=== PATIENT | female | born 1950 | race Caucasian/White ===

== ENCOUNTER → 2019-12-02 13:09 | Outpatient (BNVA) | payer MEDICARE, OTHER, SELFPAY | PROVIDERS: Family Provider Nurse Practitioner Family; PCP Nurse Practitioner Family; Visit Provider Nurse Practitioner Family | DX: R30.0 Dysuria (principal) | CPT/HCPCS: 80053; 81003; 87077; 87086; 87186 ==

== ENCOUNTER → 2020-10-16 14:52 | Outpatient (BNVA) | payer MEDICARE, OTHER, SELFPAY | PROVIDERS: Family Provider Nurse Practitioner Family; PCP Nurse Practitioner Family; Visit Provider Family Medicine | DX: F41.9 Anxiety disorder, unspecified (principal); G47.09 Other insomnia; E55.9 Vitamin D deficiency, unspecified; F32.9 Major depressive disorder, single episode, unspecified; L40.9 Psoriasis, unspecified | CPT/HCPCS: 80053; 80061; 82306; 84443 ==

== ENCOUNTER → 2022-02-24 12:03 | Outpatient (BNVA) | payer MEDICARE, OTHER, SELFPAY | PROVIDERS: Family Provider Nurse Practitioner Family; PCP Nurse Practitioner Family; Visit Provider Nurse Practitioner Family | DX: G47.09 Other insomnia (principal); L40.9 Psoriasis, unspecified; M25.511 Pain in right shoulder; E55.9 Vitamin D deficiency, unspecified; F32.9 Major depressive disorder, single episode, unspecified; F41.9 Anxiety disorder, unspecified; F32.1 Major depressive disorder, single episode, moderate; Z78.0 Asymptomatic menopausal state | CPT/HCPCS: 80053; 80061; 82306; 84443 ==

== ENCOUNTER → 2022-02-27 11:29 | Outpatient (BNVA) | payer MEDICARE, OTHER, SELFPAY | PROVIDERS: Family Provider Nurse Practitioner Family; PCP Nurse Practitioner Family; Visit Provider Nurse Practitioner Family | DX: R30.0 Dysuria (principal); N39.0 Urinary tract infection, site not specified | CPT/HCPCS: 81003 ==

== ENCOUNTER → 2022-04-17 13:16 | Outpatient (BNVA) | payer MEDICARE, OTHER, SELFPAY | PROVIDERS: Family Provider Nurse Practitioner Family; PCP Nurse Practitioner Family; Visit Provider Nurse Practitioner Family | DX: R10.9 Unspecified abdominal pain (principal); R31.9 Hematuria, unspecified | CPT/HCPCS: 87086 ==

== ENCOUNTER → 2022-04-25 08:44 | Outpatient (BNVA) | payer MEDICARE, OTHER, SELFPAY | PROVIDERS: Family Provider Nurse Practitioner Family; PCP Nurse Practitioner Family; Visit Provider Nurse Practitioner Family | DX: N39.0 Urinary tract infection, site not specified (principal) | CPT/HCPCS: 81000 ==

== ENCOUNTER → 2022-05-06 11:09 | Outpatient (BNVA) | payer MEDICARE, OTHER, SELFPAY | PROVIDERS: Family Provider Nurse Practitioner Family; PCP Nurse Practitioner Family; Visit Provider Nurse Practitioner Family | DX: R10.9 Unspecified abdominal pain (principal); N39.0 Urinary tract infection, site not specified; Z11.59 Encounter for screening for other viral diseases; Z72.89 Other problems related to lifestyle; R31.9 Hematuria, unspecified; M25.50 Pain in unspecified joint; M25.551 Pain in right hip; R07.89 Other chest pain | CPT/HCPCS: 71046; 73502; 81003; 82565; 85651; 86038; 86140; 86200; 86431; 86705; 86706; 86709; 86803; 87077; 87086; 87184; 87340 ==

== ENCOUNTER → 2022-05-13 10:37 | Outpatient (BNVA) | payer MEDICARE, OTHER, SELFPAY | PROVIDERS: Family Provider Nurse Practitioner Family; PCP Nurse Practitioner Family; Visit Provider Nurse Practitioner Family | DX: R60.9 Edema, unspecified (principal); Z01.810 Encounter for preprocedural cardiovascular examination | CPT/HCPCS: 80053; 83880 ==

== ENCOUNTER 2022-05-14 09:40 | Emergency (ER) | payer MEDICARE, OTHER, SELFPAY ==
[2022-05-14 09:49] VITALS: BP 126/66; PULSE 96; RESP 18; TEMP 36.8; O2SAT 93; BMI 22.8
--- NOTE | 2022-05-14 10:13 | XRR_ITS ---
PROCEDURE INFORMATION: Exam: XR Chest Exam date and time: 05/14/2022 10:26 AM Age: 71 years old Clinical indication: Other: Kidney pain; Additional info: Swelling TECHNIQUE: Imaging protocol: Radiologic exam of the chest. Views: 1 view. COMPARISON: CR XR chest 2V* [id number] 05/06/2022 11:14 AM FINDINGS: Lungs: Low lung volumes seen.. There is a diffuse parenchymal density in the right perihilar region. This finding is 67 mm x 31 mm in size. No calcifications seen. There appear to be sharp borders in parts of this lesion. Edges would not be expected with pneumonia . The potential for a mass should be ruled out. Chest CT examination is recommended with intravenous contrast. Pleural spaces: Unremarkable. No pleural effusion. No pneumothorax. Heart/Mediastinum: There is prominence in the right hilar soft tissues. These findings may represent enlarged lymph node or mass lesions. No cardiomegaly. Bones/joints: Unremarkable. XR/XR chest 1V portable [id number] IMPRESSION: 1. Right perihilar parenchymal density rule out mass CT chest recommended 2. Prominent soft tissues in the right hilum rule out the lymph nodes or mass. 3. Otherwise negative chest examination are are a
--- NOTE | 2022-05-14 10:15 | W.ED.GENADLT ---
Documented by User: TRENA Sellers 05/14/22 13:00 HPI - General Adult General: Chief complaint: Urogenital-Female Stated complaint: kidney pain Time Seen by Provider: 05/14/22 09:42 Source: patient Mode of arrival: ambulatory Limitations: no limitations History of Present Illness: Patient is a 71-year-old female who presents to ED today with a complaint of right lower chest/abdominal/flank pains. Patient states she has had these pains for approximately 1.5 months. She states she has been diagnosed with UTIs and kidney infections and treated with antibiotics but this has not seemed to alleviate her discomfort. She states over the past 2 to 3 days she began noticing lower extremity pitting edema that she states is new. Patient does not complain of shortness of breath, difficulty breathing, or chest pain. She has no history of CHF. She does report her urine has been darker than normal but does not complain of dysuria, frequency, urgency. She has not been running fevers. No history of kidney or ureterolithiasis. Patient has not had a cough or other URI-like symptoms. Onset (ago): day(s) Pain Consistency: constant Relieving factors: none Exacerbating factors: none Associated symptoms: Reports chest pain (R lower chest wall pain); Deny dyspnea, headache(s), malaise, nausea, rash, palpitations, syncope or vomiting Review of Systems Const: Denies: fever(s), chills, body aches, fatigue or malaise Card: Reports: chest pain (R lower chest wall pain), edema and swelling of feet/ankles; Denies: palpitations, irregular heart rhythm, lightheadedness, syncope, pre-syncope, dyspnea on exertion, orthopnea, leg pain with exertion or acrocyanosis Resp: Reports: pain on inspiration; Denies: dyspnea, productive cough, non-productive cough, wheezing, hemoptysis or chest congestion GI: Denies: abdominal pain, nausea, vomiting or diarrhea : Reports: other (reports darker than normal urine); Denies: flank pain, difficulty voiding, dysuria, urinary frequency, urinary urgency or urinary hesitancy Musc: Denies: neck pain, extremity pain or joint pain Skin/Breast: Denies: rash Neuro: Denies: headache(s), numbness in extremities, weakness in extremities or sensory changes PFSH ED PFSH: Medical History (Updated 05/14/22 @ 13:06 by TRENA Sellers) Anxiety Depression Surgical History History of appendectomy History of partial colectomy (~1976) Family History Other Diabetes Stroke Social History Smoking and tobacco status: current every day smoker Second hand smoke exposure: No Smoking risk assessment/counseling performed?: No Alcohol intake: never Lives independently: Yes Household members: spouse Marital status: Current occupational status: retired History of recent travel: No Current gender identity: Female Special romana needs: No Physical Exam Const: COMMON NORMALS: no acute distress, patient oriented x3, no limitations and alert GENERAL APPEARANCE: cooperative ORIENTATION/CONSCIOUSNESS: Yes awake, Yes oriented to person, Yes oriented to place and Yes oriented to time HENMT: COMMON NORMALS: normocephalic and atraumatic HEAD & SCALP: normal to inspection, normocephalic and atraumatic Neck/C-Spine: COMMON NORMALS: full ROM and no lymphadenopathy GENERAL: Yes normal visual inspection Chest: COMMONS NORMALS: normal inspection of the chest OTHER: TTP R lower anteriolateral chest Resp: COMMON NORMALS: normal respiratory effort and clear to auscultation bilaterally AUSCULTATION: clear to auscultation bilaterally Cardio: COMMON NORMALS: regular rate and regular rhythm RATE: regular rate RHYTHM: regular rhythm GI: COMMON NORMALS: Soft to palpation and no masses INSPECTION: Yes normal to inspection AUSCULTATION: Yes normoactive bowel sounds PALPATION: Yes Soft to palpation, Yes Tenderness to palpation present (GI) Details: RUQ, No Guarding due to palpation present (GI), No Rigid due to palpation and Yes Hepatomegaly present (significant) : COMMON NORMALS: Yes no CVA tenderness BLADDER/KIDNEY EXAM: Yes no CVA tenderness Back/Pelvis: COMMON NORMALS: no CVA tenderness, thoracic and lumbar spine normal to inspection, no thoracic nor lumbar tenderness and thoraco-lumbar ROM normal Extremity: COMMON NORMALS: normal to inspection NARRATIVE EXTREMITY EXAM: bilateral symmetric edema GENERAL: Yes edema Neuro: JAK COMA SCALE: document GCS findings [place] coma scale eye opening: Spontaneous [place] coma scale verbal response: Orientated [place] coma scale motor response: Obey commands [place] coma scale total score: 15 COMMON NORMALS: patient oriented x3, CN's II-XII intact bilaterally, moves all extremities, no focal motor deficits, no sensory deficits noted and gait normal SENSORIUM/ORIENTATION: Yes alert, Yes oriented to person, Yes oriented to place and Yes oriented to time Skin: COMMON NORMALS: no rashes or lesions noted GENERAL SKIN EXAM: no rashes or lesions noted Course Vital Signs: Vital signs: Vital Signs Temperature 98.3 F 05/14/22 09:49 Pulse Rate 70 05/14/22 15:58 Respiratory Rate 16 05/14/22 15:58 Blood Pressure 135/70 05/14/22 15:58 Pulse Oximetry 94 05/14/22 15:58 Oxygen Delivery Me thod 05/14/22 10:22 Oxygen Flow Rate 2 05/14/22 13:06 MDM - General Adult Medical Decision Making Patient unfortunately was found to have extensive mass lesions involving her mediastinum, right hilum/lung, and hepatic lesions. Discussed liver biopsy outpatient however patient declines this and would like to meet with oncology to go over CT findings and options for hospice and/or palliative treatment. She will meet with Dr. Tellez on Thursday. Discussed case with Dr. Hagan who agrees with care plan for patient. Lab Data 05/14/22 10:20 05/14/22 10:20 Radiology Impressions Chest X-Ray 05/14/22 10:13 IMPRESSION: 1. Right perihilar parenchymal density rule out mass CT chest recommended 2. Prominent soft tissues in the right hilum rule out the lymph nodes or mass. 3. Otherwise negative chest examination are are a Chest/Abdomen/Pelvis CT 05/14/22 11:00 IMPRESSION: 1. Extensive mass lesions involving the mediastinum, right hilum, and a right upper lobe pleura.. This finding corresponds to a primary pulmonary malignancy. 2. Multiple right upper lobe pulmonary nodules, and pleural based nodules consistent with secondary tumors. 3. Diffuse pulmonary emphysema in both lungs. IMPRESSION: 1. Innumerable hepatic secondary tumor mass lesions as described. 2. Cholecystectomy. 3. Sigmoid colon diverticulosis. 4. Hepatomegaly. Laboratory Results WBC 9.7 10^3/uL (4.0-10.0) 05/14/22 10:20 RBC 5.34 10^6/uL (4.1-5.3) H 05/14/22 10:20 Hgb 16.4 g/dL (11.5-15.3) H 05/14/22 10:20 Hct 49.3 % (37.0-47.0) H 05/14/22 10:20 MCV 92.3 fl (81-99) 05/14/22 10:20 MCH 30.7 pg (28.0-34.0) 05/14/22 10:20 MCHC 33.3 g/dL (30.0-36.0) 05/14/22 10:20 RDW 16.9 % (12.1-15.1) H 05/14/22 10:20 Plt Count 311 10^3/cmm (130-400) 05/14/22 10:20 MPV 9.9 fL (7.4-10.4) 05/14/22 10:20 Neut % (Auto) 81.7 % 05/14/22 10:20 Lymph % (Auto) 9.1 % 05/14/22 10:20 [place] % (Auto) 7.8 % 05/14/22 10:20 Eos % (Auto) 0.3 % 05/14/22 10:20 Baso % (Auto) 0.4 % 05/14/22 10:20 Neut # (Auto) 7.94 10^3/uL (1.8-7.7) H 05/14/22 10:20 Lymph # (Auto) 0.9 10^3/uL (0.8-4.8) 05/14/22 10:20 [place] # (Auto) 0.8 10^3/uL (0.2-0.9) 05/14/22 10:20 Eos # (Auto) 0.0 10^3/uL (0.0-0.8) 05/14/22 10:20 Baso # (Auto) 0.0 10^3/uL (0.0-0.1) 05/14/22 10:20 Nucleated RBC % (auto) 0.2 % 05/14/22 10:20 Nucleated RBCs # 0.0 /100WBC 05/14/22 10:20 PT 13.60 SECONDS (12.1-14.9) 05/14/22 10:30 INR 1.01 (0.8-1.2) 05/14/22 10:30 APTT 24.8 SECONDS (23.9-36.7) 05/14/22 10:30 Sodium 134 mmol/L (136-145) L 05/14/22 10:20 Potassium 3.5 mmol/L (3.5-5.1) 05/14/22 10:20 Chloride 93 mmol/L (98-107) L 05/14/22 10:20 Carbon Dioxide 25 mmol/L (22-29) 05/14/22 10:20 Anion Gap 19.5 (5-19) H 05/14/22 10:20 BUN 18 mg/dL (8-23) 05/14/22 10:20 Creatinine 0.7 mg/dL (0.5-0.9) 05/14/22 10:20 GFR Calculation Not Reportable 05/14/22 10:20 Glucose 110 mg/dL (65-115) 05/14/22 10:20 Calculated Osmolality 281 mOsm/kg (285-295) L 05/14/22 10:20 Calcium 8.8 mg/dL (8.5-10.5) 05/14/22 10:20 Total Bilirubin 0.8 mg/dL (0.15-1.2) 05/14/22 10:20 AST 131 U/L (0-32) H 05/14/22 10:20 ALT 148 U/L (0-33) H 05/14/22 10:20 Alkaline Phosphatase 364 U/L (35-105) H 05/14/22 10:20 NT-Pro-B Natriuret Pep 2388 pg/mL (0-125) H 05/14/22 10:20 Total Protein 6.6 g/dL (6.6-8.7) 05/14/22 10:20 Albumin 3.7 g/dL (3.5-5.2) 05/14/22 10:20 Globulin 2.9 g/dL (1.3-4.6) 05/14/22 10:20 Urine Color [place] (Yellow) 05/14/22 10:04 Urine Appearance Clear (CLEAR) 05/14/22 10:04 Urine pH 5 (5-7) 05/14/22 10:04 Ur Specific [place] 1.015 (1.005-1.030) 05/14/22 10:04 Urine Protein Trace (Negative) 05/14/22 10:04 Urine Glucose (UA) Norm (Normal) 05/14/22 10:04 Urine Ketones 1+ (Negative) H 05/14/22 10:04 Urine Blood Neg (Negative) 05/14/22 10:04 Urine Nitrate Negative (Negative) 05/14/22 10:04 Urine Bilirubin 1+ (Negative) H 05/14/22 10:04 Urine Urobilinogen 4 mg/dL (Negative) H 05/14/22 10:04 Ur Leukocyte Esterase Negative (Negative) 05/14/22 10:04 Urine RBC None /hpf (0-2) 05/14/22 10:04 Urine WBC Rare /hpf (0-5) 05/14/22 10:04 Ur Squamous Epith Cells 15-25 /hpf (0-5) H 05/14/22 10:04 Ur Transition Epith Cell 0-4 /hpf 05/14/22 10:04 Ur Renal Epithelial Cell 0 /hpf 05/14/22 10:04 Amorphous Sediment 1+ /hpf 05/14/22 10:04 Urine Bacteria 1+ /hpf (NONE) H 05/14/22 10:04 Discharge Plan Discharge Patient Disposition: Home Clinical Impression: Liver mass Lung malignancy Qualifiers: Laterality: right Lung location: unspecified part of lung Qualified Code(s): C34.91 - Malignant neoplasm of unspecified part of right bronchus or lung Condition: Stable Prescriptions: New hydrocodone-acetaminophen 5-325 mg tablet 1 tab PO .q 4-6 PRN (Reason: pain) Qty: 20 0RF No Action lorazepam 1 mg tablet 1 mg PO DAILY Qty: 30 3RF albuterol sulfate [ProAir HFA] 90 mcg/actuation HFA aerosol inhaler 2 puff inhalation Q6H PRN (Reason: shortness of breath or wheezing) Qty: 8.5 1RF diclofenac sodium [Voltaren Arthritis Pain] 1 % gel 4 g topical QID Qty: 100 0RF cholecalciferol (vitamin D3) 50 mcg (2,000 unit) capsule 50 mcg PO DAILY 90 Days Qty: 90 1RF ondansetron HCl 4 mg tablet 4 mg PO Q6H PRN (Reason: nausea and vomiting) Qty: 90 0RF nortriptyline 25 mg capsule 75 mg PO QPM Discharge Orders: Discharge ED (Routine); Ordered 05/14/22 Ordered By: Carolin Christopher Other Ambulatory Orders: DME: Oxygen (Order) Location: None Selected Ordered By: Carolin Christopher Referrals: Jacqueline Martinez, MANAGER [employer] [Primary Care Provider] - Patient Instructions: Opioid Safety, Pain Management Activity Restrictions/Additional Instructions: Dr. Tellez at the oncology center will see you on ThursdayMay 16 at 11:30. Coding Level of Care Code ED Cigarette Packing Machine Operator for Chg Fwd Exam Comprehensive Documented by User: Jose Manuel Hagan DO 05/14/22 16:55 HPI - General Adult General: Chief complaint: Urogenital-Female Stated complaint: kidney pain Time Seen by Provider: 05/14/22 09:42 PFSH ED PFSH: Medical History (Updated 05/14/22 @ 13:06 by TRENA eSllers) Anxiety Depression Surgical History History of appendectomy History of partial colectomy (~1976) Family History Other Diabetes Stroke Social History Smoking and tobacco status: current every day smoker Second hand smoke exposure: No Smoking risk assessment/counseling performed?: No Alcohol intake: never Lives independently: Yes Household members: spouse Marital status: Current occupational status: retired History of recent travel: No Current gender identity: Female Special romana needs: No Physical Exam Neuro: JAK COMA SCALE: document GCS findings [place] coma scale total score: 15 Course Vital Signs: Vital signs: Vital Signs Temperature 98.3 F 05/14/22 09:49 Pulse Rate 70 05/14/22 15:58 Respiratory Rate 16 05/14/22 15:58 Blood Pressure 135/70 05/14/22 15:58 Pulse Oximetry 94 05/14/22 15:58 Oxygen Delivery Me thod 05/14/22 10:22 Oxygen Flow Rate 2 05/14/22 13:06 MDM - General Adult Medical Decision Making Patient unfortunately was found to have extensive mass lesions involving her mediastinum, right hilum/lung, and hepatic lesions. Discussed liver biopsy outpatient however patient declines this and would like to meet with oncology to go over CT findings and options for hospice and/or palliative treatment. She will meet with Dr. Tellez on Thursday. Discussed case with Dr. Hagan who agrees with care plan for patient. Chart reviewed and patient discussed with midlevel. Agree with assessment and plan. Medical Records I reviewed the patient's medical records. Lab Data I reviewed the patient's lab results. 05/14/22 10:20 05/14/22 10:20 Radiology Impressions Chest X-Ray 05/14/22 10:13 IMPRESSION: 1. Right perihilar parenchymal density rule out mass CT chest recommended 2. Prominent soft tissues in the right hilum rule out the lymph nodes or mass. 3. Otherwise negative chest examination are are a Chest/Abdomen/Pelvis CT 05/14/22 11:00 IMPRESSION: 1. Extensive mass lesions involving the mediastinum, right hilum, and a right upper lobe pleura.. This finding corresponds to a primary pulmonary malignancy. 2. Multiple right upper lobe pulmonary nodules, and pleural based nodules consistent with secondary tumors. 3. Diffuse pulmonary emphysema in both lungs. IMPRESSION: 1. Innumerable hepatic secondary tumor mass lesions as described. 2. Cholecystectomy. 3. Sigmoid colon diverticulosis. 4. Hepatomegaly. Laboratory Results WBC 9.7 10^3/uL (4.0-10.0) 05/14/22 10:20 RBC 5.34 10^6/uL (4.1-5.3) H 05/14/22 10:20 Hgb 16.4 g/dL (11.5-15.3) H 05/14/22 10:20 Hct 49.3 % (37.0-47.0) H 05/14/22 10:20 MCV 92.3 fl (81-99) 05/14/22 10:20 MCH 30.7 pg (28.0-34.0) 05/14/22 10:20 MCHC 33.3 g/dL (30.0-36.0) 05/14/22 10:20 RDW 16.9 % (12.1-15.1) H 05/14/22 10:20 Plt Count 311 10^3/cmm (130-400) 05/14/22 10:20 MPV 9.9 fL (7.4-10.4) 05/14/22 10:20 Neut % (Auto) 81.7 % 05/14/22 10:20 Lymph % (Auto) 9.1 % 05/14/22 10:20 [place] % (Auto) 7.8 % 05/14/22 10:20 Eos % (Auto) 0.3 % 05/14/22 10:20 Baso % (Auto) 0.4 % 05/14/22 10:20 Neut # (Auto) 7.94 10^3/uL (1.8-7.7) H 05/14/22 10:20 Lymph # (Auto) 0.9 10^3/uL (0.8-4.8) 05/14/22 10:20 [place] # (Auto) 0.8 10^3/uL (0.2-0.9) 05/14/22 10:20 Eos # (Auto) 0.0 10^3/uL (0.0-0.8) 05/14/22 10:20 Baso # (Auto) 0.0 10^3/uL (0.0-0.1) 05/14/22 10:20 Nucleated RBC % (auto) 0.2 % 05/14/22 10:20 Nucleated RBCs # 0.0 /100WBC 05/14/22 10:20 PT 13.60 SECONDS (12.1-14.9) 05/14/22 10:30 INR 1.01 (0.8-1.2) 05/14/22 10:30 APTT 24.8 SECONDS (23.9-36.7) 05/14/22 10:30 Sodium 134 mmol/L (136-145) L 05/14/22 10:20 Potassium 3.5 mmol/L (3.5-5.1) 05/14/22 10:20 Chloride 93 mmol/L (98-107) L 05/14/22 10:20 Carbon Dioxide 25 mmol/L (22-29) 05/14/22 10:20 Anion Gap 19.5 (5-19) H 05/14/22 10:20 BUN 18 mg/dL (8-23) 05/14/22 10:20 Creatinine 0.7 mg/dL (0.5-0.9) 05/14/22 10:20 GFR Calculation Not Reportable 05/14/22 10:20 Glucose 110 mg/dL (65-115) 05/14/22 10:20 Calculated Osmolality 281 mOsm/kg (285-295) L 05/14/22 10:20 Calcium 8.8 mg/dL (8.5-10.5) 05/14/22 10:20 Total Bilirubin 0.8 mg/dL (0.15-1.2) 05/14/22 10:20 AST 131 U/L (0-32) H 05/14/22 10:20 ALT 148 U/L (0-33) H 05/14/22 10:20 Alkaline Phosphatase 364 U/L (35-105) H 05/14/22 10:20 NT-Pro-B Natriuret Pep 2388 pg/mL (0-125) H 05/14/22 10:20 Total Protein 6.6 g/dL (6.6-8.7) 05/14/22 10:20 Albumin 3.7 g/dL (3.5-5.2) 05/14/22 10:20 Globulin 2.9 g/dL (1.3-4.6) 05/14/22 10:20 Urine Color [place] (Yellow) 05/14/22 10:04 Urine Appearance Clear (CLEAR) 05/14/22 10:04 Urine pH 5 (5-7) 05/14/22 10:04 Ur Specific [place] 1.015 (1.005-1.030) 05/14/22 10:04 Urine Protein Trace (Negative) 05/14/22 10:04 Urine Glucose (UA) Norm (Normal) 05/14/22 10:04 Urine Ketones 1+ (Negative) H 05/14/22 10:04 Urine Blood Neg (Negative) 05/14/22 10:04 Urine Nitrate Negative (Negative) 05/14/22 10:04 Urine Bilirubin 1+ (Negative) H 05/14/22 10:04 Urine Urobilinogen 4 mg/dL (Negative) H 05/14/22 10:04 Ur Leukocyte Esterase Negative (Negative) 05/14/22 10:04 Urine RBC None /hpf (0-2) 05/14/22 10:04 Urine WBC Rare /hpf (0-5) 05/14/22 10:04 Ur Squamous Epith Cells 15-25 /hpf (0-5) H 05/14/22 10:04 Ur Transition Epith Cell 0-4 /hpf 05/14/22 10:04 Ur Renal Epithelial Cell 0 /hpf 05/14/22 10:04 Amorphous Sediment 1+ /hpf 05/14/22 10:04 Urine Bacteria 1+ /hpf (NONE) H 05/14/22 10:04 Discharge Plan Discharge Patient Disposition: Home Clinical Impression: Liver mass Lung malignancy Qualifiers: Laterality: right Lung location: unspecified part of lung Qualified Code(s): C34.91 - Malignant neoplasm of unspecified part of right bronchus or lung Condition: Stable Prescriptions: New hydrocodone-acetaminophen 5-325 mg tablet 1 tab PO .q 4-6 PRN (Reason: pain) Qty: 20 0RF No Action lorazepam 1 mg tablet 1 mg PO DAILY Qty: 30 3RF albuterol sulfate [ProAir HFA] 90 mcg/actuation HFA aerosol inhaler 2 puff inhalation Q6H PRN (Reason: shortness of breath or wheezing) Qty: 8.5 1RF diclofenac sodium [Voltaren Arthritis Pain] 1 % gel 4 g topical QID Qty: 100 0RF cholecalciferol (vitamin D3) 50 mcg (2,000 unit) capsule 50 mcg PO DAILY 90 Days Qty: 90 1RF ondansetron HCl 4 mg tablet 4 mg PO Q6H PRN (Reason: nausea and vomiting) Qty: 90 0RF nortriptyline 25 mg capsule 75 mg PO QPM Discharge Orders: Discharge ED (Routine); Ordered 05/14/22 Ordered By: Carolin Christopher Other Ambulatory Orders: DME: Oxygen (Order) Location: None Selected Ordered By: Carolin Christopher Referrals: Jacqueline Martinez NP [Primary Care Provider] - Patient Instructions: Opioid Safety, Pain Management Activity Restrictions/Additional Instructions: Dr. Tellez at the oncology center will see you on ThursdayMay 16 at 11:30. Coding Level of Care Code ED Cigarette Packing Machine Operator for Chg Fwd Exam Comprehensive
[2022-05-14 10:22] VITALS: BP 127/66; PULSE 95; O2SAT 93
[2022-05-14 10:32] LABS: Add Urine Microscopic? YES; Bilirubin Urine 1+ (Negative); Blood Urine Neg (Negative); Glucose Urine UA Norm (Normal); Ketones Urine 1+ (Negative); Leukocyte Esterase Urine Negative (Negative); Nitrate Urine Negative (Negative); Protein Urine Trace (Negative); Specific Gravity, Urine 1.015 (1.005-1.030); Urine Appearance Clear (CLEAR); Urine Color Amber (Yellow); Urobilinogen Urine 4 mg/dL (Negative); pH Urine 5 (5-7)
[2022-05-14 10:39] LABS: Bacteria Urine 1+ /hpf; Renal Epithelial Cells Urine 0 /hpf; Squamous Epithelial Cell Urine 15-25 /hpf (0-5); Transitional Epi Cells Urine 0-4 /hpf; WBC Urine RARE /hpf (0-5)
[2022-05-14 10:40] LABS: Add Urine Culture? No; Amorphous Sediment Urine 1+ /hpf
[2022-05-14 10:45] LABS: Basophils % 0.4 %; Eosinophils % 0.3 %; Hematocrit 49.3 % (37.0-47.0); Hemoglobin 16.4 g/dL (11.5-15.3); Lymphocytes # 0.9 10^3/uL (0.8-4.8); Lymphocytes % 9.1 %; Mean Corpuscular HGB Conc 33.3 g/dL (30.0-36.0); Mean Corpuscular Hemoglobin 30.7 pg (28.0-34.0); Mean Corpuscular Volume 92.3 fl (81-99); Mean Platelet Volume 9.9 fL (7.4-10.4); Monocytes # 0.8 10^3/uL (0.2-0.9); Monocytes % 7.8 %; Neutrophils # 7.94 10^3/uL (1.8-7.7); Neutrophils % 81.7 %; Nucleated Red Blood Cells % 0.2 %; Platelet Count 311 10^3/cmm (130-400); Red Blood Count 5.34 10^6/uL (4.1-5.3); Red Cell Distribution Width 16.9 % (12.1-15.1); White Blood Count 9.7 10^3/uL (4.0-10.0)
--- NOTE | 2022-05-14 11:00 | CTR_ITS ---
PROCEDURE INFORMATION: Exam: CT Chest With Contrast; Diagnostic Exam date and time: 05/14/2022 11:12 AM Age: 71 years old Clinical indication: Abdominal pain; Localized; Right upper quadrant (ruq); Right-sided; Additional info: R abd/lung pain; Abn cxr; Bilateral le swell; Elevated lfts TECHNIQUE: Imaging protocol: Diagnostic computed tomography of the chest with contrast. Radiation optimization: All CT scans at this facility use at least one of these dose optimization techniques: automated exposure control; mA and/or kV adjustment per patient size (includes targeted exams where dose is matched to clinical indication); or iterative reconstruction. Contrast material: OMNI 350; Contrast volume: 100 ml; Contrast route: INTRAVENOUS (IV); COMPARISON: CR XR chest 1V portable [id number] 05/14/2022 10:26 AM RADIATION DOSE METRICS: Total DLP (mGy-cm): 575.34 FINDINGS: Lungs: There are multiple of right lung mass lesions. These lesions appear in the right hilum with axial measurements of 50 mm x 57 mm. This lesion encases the distal aspect of the right main pulmonary artery and the right lower lobe artery.. There are multiple circumscribed lung nodules in the right upper lobe . Examination shows diffuse of pulmonary emphysema in both lungs. Mediastinum: There are multiple mass lesions in the mediastinum . A circumscribed mass is present in the prevascular space adjacent to the ascending aorta extending into the central mediastinum and right hilum. This finding measures 10 cm in AP diameter transverse measurement is 6.6 cm. This finding partially encases the right main pulmonary artery, the right lower lobe artery, in and effaces the SVC Pleural spaces: .There is pleural thickening in the right lung apex and the posterior wall of the right upper lobe. The largest of these lesions is in the posterolateral right upper lobe measuring 16 mm x 54 mm in the coronal plane. A pleural base nodule is seen in the anterior chest wall adjacent to the level of the ascending aorta measuring 10 mm These lesions are consistent with secondary malignant tumor. No pneumothorax. No pleural effusion. Heart: Unremarkable. No cardiomegaly. No pericardial effusion. Lymph nodes: Unremarkable. No enlarged lymph nodes. Vasculature: Unremarkable. No aortic aneurysm. Bones/joints: Unremarkable. No acute fracture. Soft tissues: Unremarkable. PROCEDURE INFORMATION: Exam: CT Abdomen And Pelvis With Contrast Exam date and time: 05/14/2022 11:12 AM Age: 71 years old Clinical indication: Abdominal pain; Localized; Right upper quadrant (ruq); Right-sided; Additional info: R abd/lung pain; Abn cxr; Bilateral le swell; Elevated lfts TECHNIQUE: Imaging protocol: Computed tomography of the abdomen and pelvis with contrast. Radiation optimization: All CT scans at this facility use at least one of these dose optimization techniques: automated exposure control; mA and/or kV adjustment per patient size (includes targeted exams where dose is matched to clinical indication); or iterative reconstruction. Contrast material: OMNI 350; Contrast volume: 100 ml; Contrast route: INTRAVENOUS (IV); COMPARISON: CR XR hip RT 2-3V wo/w pel* [id number] 05/06/2022 11:22 AM RADIATION DOSE METRICS: Total DLP (mGy-cm): 575.34 FINDINGS: Liver: There is extensive hematogenous metastatic mass lesions throughout the liver. The volume of tumor is excessive and almost replaces the liver tissue. The lesions are innumerable. there is hepatomegaly the liver span is 22 cm Gallbladder and bile ducts: Cholecystectomy Pancreas: Normal. No ductal dilation. Spleen: Normal. No splenomegaly. Adrenal glands: Normal. No mass. Kidneys and ureters: Normal. No hydronephrosis. Stomach and bowel: Diffuse sigmoid diverticulosis is seen without diverticulitis. No obstruction. No mucosal thickening. Appendix: No evidence of appendicitis. Intraperitoneal space: Unremarkable. No free air. No significant fluid collection. Vasculature: Unremarkable. No abdominal aortic aneurysm. Lymph nodes: Unremarkable. No enlarged lymph nodes. Urinary bladder: Unremarkable as visualized. Reproductive: Unremarkable as visualized. Bones/joints: Unremarkable. No acute fracture. Soft tissues: Unremarkable. CT/CT chest abd pel w con* IMPRESSION: 1. Extensive mass lesions involving the mediastinum, right hilum, and a right upper lobe pleura.. This finding corresponds to a primary pulmonary malignancy. 2. Multiple right upper lobe pulmonary nodules, and pleural based nodules consistent with secondary tumors. 3. Diffuse pulmonary emphysema in both lungs. IMPRESSION: 1. Innumerable hepatic secondary tumor mass lesions as described. 2. Cholecystectomy. 3. Sigmoid colon diverticulosis. 4. Hepatomegaly.
[2022-05-14] MEDS: iohexol 350 mg/mL 500 mL Btl (per mL) IV (11:15)
[2022-05-14 11:32] LABS: Alanine Aminotransferase 148 U/L (0-33); Albumin Level 3.7 g/dL (3.5-5.2); Alkaline Phosphatase 364 U/L (35-105); Anion Gap 19.5 (5-19); Aspartate Amino Transferase 131 U/L (0-32); Blood Urea Nitrogen 18 mg/dL (8-23); Calcium 8.8 mg/dL (8.5-10.5); Carbon Dioxide 25 mmol/L (22-29); Chloride 93 mmol/L (98-107); Globulin 2.9 g/dL (1.3-4.6); Glucose 110 mg/dL (65-115); NT Pro B Type Natriuretic Pept 2388 pg/mL (0-125); Osmolality Calculated 281 mOsm/kg (285-295); Potassium 3.5 mmol/L (3.5-5.1); Sodium 134 mmol/L (136-145); Total Bilirubin 0.8 mg/dL (0.15-1.2); Total Protein 6.6 g/dL (6.6-8.7)
--- NOTE | 2022-05-14 12:21 | ECG_ITS ---
[facility] Test Date: 2022-05-14 Pat Name: Jil Washington Department: Room: Gender: Female Records Management Associate: : 1950 Requested By: Carolin Christopher Order Number: [id number] Dyllan MD: John Justice M.D. Measurements Intervals [place] Rate: 93 P: 64 DC: 147 QRS: 41 QRSD: 86 T: 51 QT: 383 QTc: 478 Interpretive Statements SINUS RHYTHM WITH OCCASIONAL ECTOPIC PREMATURE COMPLEXES LEFT ATRIAL ENLARGEMENT [-0.15mV P-WAVE IN V1/V2] ANTERIOR MYOCARDIAL INFARCTION , PROBABLY RECENT [40+ ms Q WAVE AND/OR ST/T ABNORMALITY IN V3/V4] ACUTE GA No previous ECG available for comparison Electronically Signed On 05-15-2022 8:57:31 HANDLE FINISHER by John Justice M.D. [id number]
--- NOTE | 2022-05-14 12:28 | DCPLANNER ---
Addendum entered by Amada Justice 05/16/22 13:13: Patient had a follow up appointment scheduled with oncology - patient did attend appointment. Addendum entered by Amada Justice 05/14/22 12:55: Patient does not want to have the liver biopsy done. Patient would like to have someone at the [facility] speak with her. tax manager called and spoke Macey stars coordinator. A follow up appointment is scheduled for Monday, May 16, 2022 at 11:[address] Tellez. tax manager informed ER physician of the scheduled appointment. Original Note: tax manager had message to schedule an outpatient US guided liver biopsy. tax manager faxed signed order to centralized scheduling, who will call patient with appointment information. tax manager had message to refer patient to oncology. tax manager called and spoke with Macey Meek, sustainability coordinator at [facility]. Patients information will be printed and reviewed, clinic will call patient with appointment information.
[2022-05-14 12:36] LABS: INR 1.01 (0.8-1.2); Partial Thromboplastin Time 24.8 SECONDS (23.9-36.7)
[2022-05-14 12:45] VITALS: RESP 16
[2022-05-14] MEDS: morphine 4 mg/mL SDV 1 mL IVP (12:45)
[2022-05-14 13:06] VITALS: O2SAT 87; O2SAT 94
[2022-05-14 15:58] VITALS: BP 135/70; PULSE 70; RESP 16; O2SAT 94
== END 2022-05-14 15:59 | disposition home or self-care (01) ==
PROVIDERS: Emergency Provider Physician Assistant; PCP Nurse Practitioner Family
DX: C34.91 Malignant neoplasm of unspecified part of right bronchus or lung (principal); R16.0 Hepatomegaly, not elsewhere classified; F17.210 Nicotine dependence, cigarettes, uncomplicated
CPT/HCPCS: 71045; 71260; 74177; 80053; 81001; 83880; 85025; 85610; 85730; 93005; 96374; 99285; J2270; Q9967

== ENCOUNTER 2022-05-16 11:13 | Oncology outpatient (recurring) (ONCR) | payer MEDICARE, OTHER, SELFPAY | END 2022-06-10 23:59 | disposition home or self-care (01) | PROVIDERS: PCP Nurse Practitioner Family; Visit Provider Internal Medicine Medical Oncology | DX: R91.8 Other nonspecific abnormal finding of lung field (principal); F17.200 Nicotine dependence, unspecified, uncomplicated; R60.0 Localized edema; Z79.891 Long term (current) use of opiate analgesic; K59.03 Drug induced constipation; Z79.52 Long term (current) use of systemic steroids; R11.0 Nausea; M54.50 Low back pain, unspecified; M79.605 Pain in left leg; M79.604 Pain in right leg | CPT/HCPCS: 99205 ==

== ENCOUNTER 2022-05-29 06:18 | Day surgery (SDC) | payer MEDICARE, OTHER, SELFPAY ==
[2022-05-28 13:16] VITALS: BMI 21.9
[2022-05-29] VITALS (11 sets, daily range): BP systolic 112–152; BP diastolic 64–92; PULSE 78–92; RESP 16–22; TEMP 36.3–37; O2SAT 96–100
[2022-05-29] MEDS: sodium chloride 0.9% 1,000 ML 30 ML IV (06:53)
--- NOTE | 2022-05-29 07:00 | ECG_ITS ---
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 Measurements Intervals [place] Rate: 87 P: 64 VA: 152 QRS: 23 QRSD: 81 T: 51 QT: 349 QTc: 421 Interpretive Statements SINUS RHYTHM POSSIBLE ANTERIOR MYOCARDIAL INFARCTION , OF INDETERMINATE AGE [30 ms Q WAVE IN V3/V4, OR R < 0.2 mV IN V4] Compared to ECG 05/14/2022 12:21:42 Atrial abnormality no longer present Myocardial infarct finding still present Electronically Signed On 05-29-2022 14:43:01 MANAGER PRACTICE by John Justice M.D. [id number]
--- NOTE | 2022-05-29 07:04 | ANES.PREANE2 ---
Pre-Anesthetic Assessment Height/Weight: Height 1.57 m Weight 54.431 kg Temp Pulse Resp BP Pulse Ox O2 Del Method 97.9 F 87 18 151/69 96 05/29/22 06:47 05/29/22 06:47 05/29/22 06:47 05/29/22 06:47 05/29/22 06:47 05/29/22 06:47 Preop Diagnosis: lung nodule Operation Date: 05/29/22 07:30 Proposed Procedures p bronchoscopy and EBUS; 81433, 03319, 00584, 09312,R91.8(Not Applicable) - Darius Cole MD s Ebus(Not Applicable) - Darius Cole MD Familial anesthetic complications: none Was Beta John taken within 24 hours: N/A Was Clonidine taken within 24 hours: N/A Last intake: Intake Last Liquid Date 05/28/22 Last Liquid Time 23:45 Last Solid Date 05/28/22 Last Solid Time 15:00 Last Intake: 23:45 Social Tobacco 1/2 pack(s) per day 50+ pack years Exam alert, oriented x 3, clear to auscultation bilaterally (wheezes) and regular rate & rhythm Airway Submandibular: within normal limits Cervical ROM: within normal limits Mallampati: Class II Dentition: full Pulmonary Chronic Obstructive Pulmonary Disease, Cough, Exertional Dyspnea and Shortness of Breath lung nodules CA CV/HEM Congestive Heart Failure (2+ edema bilateral extremities) and Hypertension None reported Hepatic None reported GI Gastroesophageal Reflux Disease (food related) Metabolic None reported Musc/skel Lower Back Pain, Osteoarthritis/DJD and Weakness low energy Neuropsych Anxiety and Depression Anesthetic Plan ASA status: 3 Anesthesia: General Other: discussed risk of prolonged intubation Risk of > 500 ml blood loss (7ml/kg in children): No Medications/Allergies Home Medications Medication Instructions Recorded Confirmed Last Taken Type diclofenac sodium 1 % topical gel 4 g topical QID #100 grams 02/24/22 05/28/22 05/13/22 Rx (Voltaren Arthritis Pain) cholecalciferol (vitamin D3) 50 50 mcg PO DAILY 90 days #90 caps 02/25/22 05/28/22 05/27/22 Rx mcg (2,000 unit) capsule lorazepam 1 mg tablet 1 mg PO DAILY #30 tabs 03/06/22 05/28/22 05/28/22 Rx albuterol sulfate 90 mcg/actuation 2 puff inhalation Q6H PRN 04/08/22 05/28/22 05/29/22 Rx aerosol inhaler (ProAir HFA) shortness of breath or wheezing #8.5 grams nortriptyline 25 mg capsule 75 mg PO QPM 05/14/22 05/28/22 05/28/22 History furosemide 40 mg tablet 40 mg PO DAILY #30 tabs 05/16/22 05/28/22 05/27/22 Rx nystatin 100,000 unit/mL oral 5 ml PO QID 7 days #140 mL 05/16/22 05/28/22 05/28/22 Rx suspension ondansetron HCl 4 mg tablet 4 mg PO Q6H PRN nausea and 05/16/22 05/28/22 05/29/22 Rx vomiting #90 tabs oxycodone 10 mg tablet 10 mg PO Q6H PRN pain 30 days #120 05/16/22 05/28/22 05/29/22 Rx tabs potassium chloride 10 mEq 10 meq PO DAILY #30 tabs 05/16/22 05/28/22 05/27/22 Rx tablet,extended release Allergies Allergy/AdvReac Type Severity Reaction Status Date / Time No Known Allergies Allergy Verified 05/29/22 06:46 Current Medications Generic Name Dose Route Start Last Admin Trade Name Freq PRN Reason Stop Dose Admin Sodium Chloride 1,000 mls @ 30 mls/hr 05/29/22 06:30 05/29/22 06:53 Sodium Chloride 0.9% IV 05/30/22 06:29 30 mls/hr .Q24H WILTON Administration PFSH Anesthesia Medical History (Updated 05/22/22 @ 00:00 by EDMUNDO Lopez) Anxiety Depression Surgical History (Updated 05/16/22 @ 13:11 by Joseph Tellez MD) History of appendectomy History of cataract extraction bilateral History of cholecystectomy Status post small bowel resection Partial small bowel resection for small bowel obstruction Family History Other Diabetes Stroke Social History Smoking and tobacco status: current every day smoker Second hand smoke exposure: No Smoking risk assessment/counseling performed?: No Alcohol intake: never Lives independently: Yes Household members: spouse Marital status: Current occupational status: retired History of recent travel: No Current gender identity: Female Special romana needs: No Data Anesthesia Cardiac Studies: No Data to Display
[2022-05-29] MEDS: albuterol 2.5 mg/3 mL Neb INHALATION (07:15)
--- NOTE | 2022-05-29 07:39 | P.HP_ITS ---
Providers/Chief Complaint Admitting Physician: Darius Cole MD Referring Physican: Dr. Tellez Primary Care Provider: Jacqueline Martinez NP Chief Complaint: R91.8 CT Chest showing . Extensive mass lesions involving the mediastinum, right hilum, and a right upper lobe pleura.. This finding corresponds to a primary pulmonary malignancy. Multiple right upper lobe p ulmonary nodules, and pleural based nodules consistent with secondary tumors. Diffuse pulmonary emphysema in both lungs. History of Present Illness Jil Washington is a 71 year old female referred by Dr. Tellez for multiple right lung mass lesions including right hilum measuring viktoriya to 5.7 cm. Patient has significant history of anxiety and depression with no otherSignificant medical history Over the past 2 months or so she had progressively worsening pain in lower back and lower extremities with bilateral leg swelling. She was seen in emergency room 05/14/2022 for these complaints and had a CT chest abdomen pelvis which showed multiple mass lesions in the right upper lobe, mediastinum, pleural-based nodules on the right and there was evidence of extensive metastatic disease throughout the liver. She also has diffuse pulmonary emphysema. She was offered liver biopsy by ED but patient declined and so was referred to oncology to go over CT findings and options for hospice palliative care. After discussion with oncology-the discussion was that if it is a small cell cancer relatively high probability of benefit with chemotherapy even in the setting of advanced disease. Decision was made to get tissue diagnosis she was referred for tissue biopsy. Today I am seeing patient for the first time in preop, .She has significant bilateral leg swelling for which she was recently started on Lasix 40 Mg daily. However patient reported that she lives in a trailer and has difficulty walking to the other end of the trailer to use restroom and so she does not take her medication often. Reports she has shortness of breath and uses 2 L nasal cannula on exertion She is has extensive smoking history. Medications/Allergies Home Medications Medication Instructions Recorded Confirmed Last Taken Type diclofenac sodium 1 % topical gel 4 g topical QID #100 grams 02/24/22 05/28/22 05/13/22 Rx (Voltaren Arthritis Pain) cholecalciferol (vitamin D3) 50 50 mcg PO DAILY 90 days #90 caps 02/25/22 05/28/22 05/27/22 Rx mcg (2,000 unit) capsule lorazepam 1 mg tablet 1 mg PO DAILY #30 tabs 03/06/22 05/28/22 05/28/22 Rx albuterol sulfate 90 mcg/actuation 2 puff inhalation Q6H PRN 04/08/22 05/28/22 05/29/22 Rx aerosol inhaler (ProAir HFA) shortness of breath or wheezing #8.5 grams nortriptyline 25 mg capsule 75 mg PO QPM 05/14/22 05/28/22 05/28/22 History furosemide 40 mg tablet 40 mg PO DAILY #30 tabs 05/16/22 05/28/22 05/27/22 Rx nystatin 100,000 unit/mL oral 5 ml PO QID 7 days #140 mL 05/16/22 05/28/22 05/28/22 Rx suspension ondansetron HCl 4 mg tablet 4 mg PO Q6H PRN nausea and 05/16/22 05/28/22 05/29/22 Rx vomiting #90 tabs oxycodone 10 mg tablet 10 mg PO Q6H PRN pain 30 days #120 05/16/22 05/28/22 05/29/22 Rx tabs potassium chloride 10 mEq 10 meq PO DAILY #30 tabs 05/16/22 05/28/22 05/27/22 Rx tablet,extended release Allergies Allergy/AdvReac Type Severity Reaction Status Date / Time No Known Allergies Allergy Verified 05/29/22 06:46 PFSH PFSH: Medical History Anxiety Depression Surgical History History of appendectomy History of cataract extraction bilateral History of cholecystectomy Status post small bowel resection Partial small bowel resection for small bowel obstruction Family History Other Diabetes Stroke Social History Smoking and tobacco status: current every day smoker Second hand smoke exposure: No Smoking risk assessment/counseling performed?: No Alcohol intake: never Lives independently: Yes Household members: spouse Marital status: Current occupational status: retired History of recent travel: No Current gender identity: Female Special romana needs: No Dietary Habits: Caffeine: Yes Vital Signs Vitals Signs: Last Vital Signs Temp 97.9 F 05/29/22 06:47 Pulse 89 05/29/22 07:15 Resp 18 05/29/22 07:11 BP 151/69 05/29/22 06:47 Pulse Ox 99 05/29/22 07:11 O2 Del Method 05/29/22 07:11 Weight: Weight last 48 hrs Weight 120 lb Physical Exam Narrative: EXAM NARRATIVE: General: alert, NAD HEENT: conj clear, EOMI, PERRL, mmm, Neck: supple, no meningismus Heme: no cervical LAP Respiratory: Inspection: No visible deformity of the chest wall Palpation: Trachea is mildly deviated to the right, bilateral symmetric expansion Percussion: Bilateral tympanic percussion note both anterior and posteriorly Auscultation: Bilateral clear to auscultation both anterior and posteriorly, no crackles wheezing or rhonchi Cardiovascular: rrr, nl s1s2, no mrg Abdomen: soft, nt, nd, no r/g, bs+ Extremities: pulses +, 3+ bilateral pitting pedal edema, no c/c : no CVA tenderness Skin: intact, no rash MSK: no back or neck pain Neurologic: grossly intact A&P Assessment and plan (1) Primary cancer of right lung: (2) Pulmonary neoplasm: Plan #Extensive lesions in right hilum and mediastinum on CT scan with possible mets to liver -Today scheduled for endobronchial ultrasound-guided biopsies -Patient will follow-up with me in outpatient for management of COPD Coding Level of Care Code New Pt Acute Code for Chg Fwd Patient Type New History Comprehensive Exam Comprehensive Medical Decision Making Moderate Complexity Diagnoses Primary cancer of right lung C34.91 Pulmonary neoplasm D49.1 Time Spent (min) 25
[2022-05-29] MEDS: lidocaine 1% INJ 20 mL XX (08:05)
[2022-05-29] MEDS: EPINEPHrine 1 mg/mL INJ XX (08:40)
--- NOTE | 2022-05-29 08:49 | P.OP_ITS ---
Operative Report Date of procedure: May 29, 2022 Pre-op diagnosis: Preop Diagnosis lung nodule Post-op diagnosis: Suspicious malignancy Procedure done: 55544 Dx Bronchoscope w/Washings or airway inspection 79068 Dx Bronchoscope w/BAL 91246 Dx Bronchoscopy w/Bronchial or Endobronchial biopsy(s), single or multiple sites 54237 Bronchoscopy w/ therapeutic aspiration of the tracheobronchial tree (clearance of airway secretions, removal of mucus plugs) 98422 EBUS Sampling 1/2 nodes Brief History: Jil Washington is a 71 year old female extensive smoking history as well as history of anxiety and depression had progressively worsening pain in lower back and lower extremities with bilateral leg swelling.? She was seen in emergency room 05/14/2022 for these complaints and had a CT chest abdomen pelvis which showed multiple mass lesions in the right upper lobe, mediastinum, pleural-based nodules on the right and there was evidence of extensive metastatic disease throughout the liver.? She also has diffuse pulmonary emphysema. She was offered liver biopsy by ED but patient declined and so was referred to oncology to go over CT findings and options for hospice palliative care. After discussion with oncology-the discussion was that if it is a small cell cancer relatively high probability of benefit with chemotherapy even in the setting of advanced disease.? Decision was made to get tissue diagnosis she was referred for tissue biopsy. Today? I am seeing patient for the first time in preop, .She has significant bilateral leg swelling for which she was recently started on Lasix 40 Mg daily.? However patient reported that she lives in a trailer and has difficulty walking to the other end of the trailer to use restroom and so she does not take her medication often. Reports she has shortness of breath and uses 2 L nasal cannula on exertion She is has extensive smoking history. Procedure: 06646 Dx Bronchoscope w/Washings or airway inspection 86041 Dx Bronchoscope w/BAL 41527 Dx Bronchoscopy w/Bronchial or Endobronchial biopsy(s), single or multiple sites 23152 Bronchoscopy w/ therapeutic aspiration of the tracheobronchial tree (clearance of airway secretions, removal of mucus plugs) 19964 EBUS Sampling 1/2 nodes Indication: Right hilar mass Anesthesia: General anesthesia. Local anesthesia: The chely in the right and left mainstem bronchi were anesthetized with 1% lidocaine, 3 mL. Description of the procedure: The procedure was explained to the patient and the consent was obtained.? The patient was brought to the OR.? The patient underwent laryngeal mask airway for general anesthesia.? Following induction of general anesthesia, the bronchoscope was advanced through the laryngeal mask airway. 1 mL 1% lidocaine instilled on the vocal cords. Both vocal cords are well visualized and they are mobile.? The trachea mucosa appeared normal, no endotracheal lesion was seen.? The chely was sharp.? The chely, the right and left mainstem bronchi are anesthetized with 1% lidocaine.? In a systematic manner bilateral bronchial tree was then examine(43055).? The bronchoscope was advanced into the left mainstem bronchus.? The mucosa appeared normal with no endobronchial lesions.The left upper lobe, lingula and left lower lobe bronchi were examined up to the third subsegmental level and no abnormalities were identified.? Mucosa appeared normal with no endobronchial lesion, active bleeding or mucous plug.? There were some clear secretions in lower lobe-which were suctioned right away.(13862) The bronchoscope was then introduced into the right mainstem bronchus.? The opening of the right upper lobe was completely occluded with endobronchial erma wth coming out of right upper lobe opening. All along the endobronchial mucosal lining of bronchus intermedius has several pearly white lesions with areas of abnormal mucosa. The right middle lobe and right lower lobe bronchi were examined up to the third subsegmental level and it appeared that endobronchial mucosa appeared edematous.? There were some mucus secretions which were suctioned right away.(04657) The bronchoscope was retracted and endobronchial ultrasound was introduced.? Accessed lymph node station 4R and 1 pass was sent for SANDRINE and preliminary pathology diagnosis was suspicious for malignancy.? After taking 2 more passes from 4R and making sure we have enough tissue in the specimen bottle, EBUS was retracted and flexible bronchoscope reintroduced. Using forceps-2 endobronchial biopsies were taken-1 from mass occluding right upper lobe and one from pearly white area of bronchus intermedius. There was some bleeding noted which was controlled by instillation of cold saline and diluted epinephrine. After wedging flexible bronchoscope in the medial segment of right lower lobe- bronchoalveolar lavage was obtained by instilling 50 cc normal saline-fluid return was 15 cc. After obtaining bronchoalveolar lavage-bronchoscope was retracted and procedure terminated. Samples: A.? Bronchoalveolar lavage specimen ([id number] ) was sent for gram stain and culture and cytology B.? Station 4R-EBUS FNA C ? 1.? Total of 3 passes were made using needle aspiration(11828); 1 pass used for touch prep - reported negative for malignancy; remaining material was placed in formalin for histopathology C. Forceps endobronchial biopsies (59807 ) from right upper lobe and bronchus intermedius ? 1.? Using forceps-2 endobronchial biopsies were taken-1 from mass occluding right upper lobe and 1 from pearly white area of bronchus intermedius were placed in formalin for histopathology Complications: None. Postprocedure chest x-ray:? No evidence of pneumothorax Updated preliminary diagnosis to the patient's aid.? I will set up clinic follow-up in 7-10 days to follow-up on biopsy results.
--- NOTE | 2022-05-29 08:56 | XR_ITS ---
WS: [id number] XR chest 1V portable [id number] REASON FOR EXAM: POST BRONCH/EBUS FINDINGS: Large right hilar mass with left lower lobe bronchus displacement and narrowing, right-sided mediasti nal mass in the aortic arch level. Multiple pleural-based masses. Coarse reticular interstitial changes with multiple small areas of lucency compatible with central lo bar emphysema. Lucencies along the right mediastinum which on previous CT scan are areas of bullae and lung entrapme nt. No pneumomediastinum. No post bronchoscopy pneumothorax is identified. There is elevation of the right hemidiaphragm however this was present preprocedure. No other new findings. XR/XR chest 1V portable [id number] IMPRESSION: Stable abnormal chest with no pneumothorax/pneumomediastinum identified post br onchoscopy.
[2022-05-29 09:47] LABS: Cyto Order Verification Order Verified
--- NOTE | 2022-05-29 15:21 | ANE.PACU2 ---
Inpatient post-anesthesia follow up: Airway intact: Yes Vital signs: Temperature 98.6 F Pulse Rate 83 Respiratory Rate 16 Blood Pressure 146/72 Pulse Oximetry 100 Oxygen Delivery Me thod Room Air Oxygen Flow Rate 6 Fraction of Inspir ed Oxygen Hydration adequate: Yes Nausea and vomiting: No Pain level: 2 Mental status: Baseline
[2022-05-30 20:02] LABS: Cyto Order Verification Order Verified
== END 2022-05-29 10:09 | disposition home or self-care (01) ==
PROVIDERS: PCP Nurse Practitioner Family; Visit Provider Internal Medicine Pulmonary Disease
PROC: 0BJ08ZZ Inspection of Tracheobronchial Tree, Via Natural or Artificial Opening Endoscopic (ICD-10-PCS; CPT 31622; principal; 2022-05-29 07:30)
PROC: BB4BZZZ Ultrasonography of Pleura (ICD-10-PCS; 2022-05-29 07:30)
DX: C34.91 Malignant neoplasm of unspecified part of right bronchus or lung (principal); F17.210 Nicotine dependence, cigarettes, uncomplicated
CPT/HCPCS: 31624; 31625; 31645; 31652; 71045; 80503; 87070; 87205; 88108; 88305; 88342; 93005; 94640; J0171; J1940; J2370; J2704; J7030; J7613

== ENCOUNTER 2022-06-01 09:20 | Emergency (ER) | payer MEDICARE, OTHER, SELFPAY ==
[2022-06-01] VITALS (7 sets, daily range): BP systolic 137–165; BP diastolic 44–94; PULSE 69–84; RESP 16–22; TEMP 37; O2SAT 93–99; BMI 23.0
--- NOTE | 2022-06-01 09:46 | ECG_ITS ---
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 Measurements Intervals [place] Rate: 75 P: 64 SC: 215 QRS: 11 QRSD: 133 T: 68 QT: 408 QTc: 456 Interpretive Statements SINUS RHYTHM WITH FIRST DEGREE AV BLOCK INTRAVENTRICULAR CONDUCTION DELAY [130+ ms QRS DURATION] POSSIBLE ANTERIOR MYOCARDIAL INFARCTION , OF INDETERMINATE AGE [30 ms Q WAVE IN V3/V4, OR R < 0.2 mV IN V4] Compared to ECG 05/29/2022 07:15:03 First degree AV block now present Intraventricular conduction delay now present Myocardial infarct finding still present Electronically Signed On 06-03-2022 7:46:27 COFFEE MACHINE TECHNICIAN by John Justice M.D. [email or web address] [facility].[place] [employer]/store/[id number]
--- NOTE | 2022-06-01 09:57 | W.ED.WEAKNES ---
HPI - Weakness General: Chief complaint: Weakness Stated complaint: WEAKNESS Time Seen by Provider: 06/01/22 09:57 Source: patient Mode of arrival: EMS Limitations: no limitations PFSH ED PFSH: Medical History Anxiety Depression Surgical History History of appendectomy History of cataract extraction bilateral History of cholecystectomy Status post small bowel resection Partial small bowel resection for small bowel obstruction Family History Other Diabetes Stroke Social History Smoking and tobacco status: current every day smoker Second hand smoke exposure: No Smoking risk assessment/counseling performed?: No Alcohol intake: never Lives independently: Yes Household members: spouse Marital status: Current occupational status: retired History of recent travel: No Current gender identity: Female Special romana needs: No Course Vital Signs: Vital signs: Vital Signs Temperature 98.6 F 06/01/22 09:31 Pulse Rate 77 06/01/22 09:31 Respiratory Rate 16 06/01/22 09:31 Blood Pressure 137/94 06/01/22 09:31 Oxygen Delivery Me thod 06/01/22 09:31 Discharge Plan Discharge Condition: Stable Prescriptions: No Action lorazepam 1 mg tablet 1 mg PO DAILY Qty: 30 3RF albuterol sulfate [ProAir HFA] 90 mcg/actuation HFA aerosol inhaler 2 puff inhalation Q6H PRN (Reason: shortness of breath or wheezing) Qty: 8.5 1RF ondansetron HCl 4 mg tablet 4 mg PO Q6H PRN (Reason: nausea and vomiting) Qty: 90 0RF nystatin 100,000 unit/mL suspension 5 ml PO QID 7 Days Qty: 140 0RF Rx Instructions: swish and swallow furosemide 40 mg tablet 40 mg PO DAILY Qty: 30 0RF potassium chloride 10 mEq tablet extended release 10 meq PO DAILY Qty: 30 0RF oxycodone 10 mg tablet 10 mg PO Q6H PRN (Reason: pain) 30 Days Qty: 120 0RF diclofenac sodium [Voltaren Arthritis Pain] 1 % gel 4 g topical QID Qty: 100 0RF cholecalciferol (vitamin D3) 50 mcg (2,000 unit) capsule 50 mcg PO DAILY 90 Days Qty: 90 1RF nortriptyline 25 mg capsule 75 mg PO QPM Spiriva with HandiHaler 18 mcg capsule, w/inhalation device 1 cap inhalation DAILY Qty: 30 3RF Rx Instructions: puncture 1 cap using device; one dose = 2 inhalations levofloxacin 500 mg tablet 500 mg PO DAILY 5 Days Qty: 5 0RF Referrals: Jacqueline Martinez NP [Primary Care Provider] - Coding Level of Care Code ED Land Resource Specialist for Chg George
--- NOTE | 2022-06-01 10:07 | XRR_ITS ---
PROCEDURE INFORMATION: Exam: XR Chest Exam date and time: 06/01/2022 11:04 AM Age: 71 years old Clinical indication: Shortness of breath; Additional info: SOB, tachycardia, weakness TECHNIQUE: Imaging protocol: Radiologic exam of the chest. Views: 1 view. COMPARISON: CR XR chest 1V portable [id number] 05/29/2022 9:34 AM FINDINGS: Lungs: The right mid lung mass measures 70 x 35 mm. This is unchanged. There is extension to the right hilum. Minimal prominence of bronchovascular markings are seen in the left base which is stable. Pleural spaces: Unremarkable. No pleural effusion. No pneumothorax. Heart/Mediastinum: Unremarkable. No cardiomegaly. Bones/joints: Unremarkable. XR/XR chest 1V portable [id number] IMPRESSION: No change in the right mid lung mass extending to the hilum.
--- NOTE | 2022-06-01 10:08 | ECG_ITS ---
[facility] Test Date: 2022-06-01 Pat Name: Jil Washington Department: Room: Gender: Female Planner Intern: : 1950 Requested By: Jennie Waters Order Number: [id number] Dyllan MD: John Justice M.D. Measurements Intervals [place] Rate: 73 P: 61 WA: 226 QRS: 4 QRSD: 142 T: 65 QT: 417 QTc: 462 Interpretive Statements SINUS RHYTHM WITH FIRST DEGREE AV BLOCK INTRAVENTRICULAR CONDUCTION DELAY [130+ ms QRS DURATION] Compared to ECG 06/01/2022 09:46:39 Myocardial infarct finding no longer present Electronically Signed On 06-03-2022 7:46:16 SOCIAL SCIENCES LECTURER by John Justice M.D. [id number]
[2022-06-01 10:34] LABS: Add Urine Microscopic? NO; Charge for UA Resulting for Rev
--- NOTE | 2022-06-01 10:36 | CTR_ITS ---
PROCEDURE INFORMATION: Exam: CTA Chest With Contrast Exam date and time: 06/01/2022 11:17 AM Age: 71 years old Clinical indication: Abdominal tenderness; Shortness of breath; Additional info: Difficulty breathing TECHNIQUE: Imaging protocol: Computed tomographic angiography of the chest with contrast. 3D rendering (Not supervised by radiologist): MIP and/or 3D reconstructed images were created by the technologist. Radiation optimization: All CT scans at this facility use at least one of these dose optimization techniques: automated exposure control; mA and/or kV adjustment per patient size (includes targeted exams where dose is matched to clinical indication); or iterative reconstruction. Contrast material: OMNI 350; Contrast volume: 100 ml; Contrast route: INTRAVENOUS (IV); COMPARISON: CT chest abd pel w con* 05/14/2022 11:12 AM RADIATION DOSE METRICS: Total DLP (mGy-cm): 677.38 FINDINGS: Pulmonary arteries: The excellent pulmonary arterial opacification without evidence of acute pulmonary embolism. There is compression of the right main upper lobe pulmonary artery with a branch vessel nonoccluded however, the is a paucity of other vessels extending to the right upper lobe probably encased or occluded from the large mass. Aorta: Unremarkable. No aortic aneurysm. No aortic dissection. Veins: The superior vena cava is severely compressed but not occluded from the mass. Lungs: The right upper lobe bronchus appears occluded from the mass with dense moderate narrowing of the bronchus intermedius. Multiple masses are noted throughout the right lung which are stable. Some of these appear even pleural based. Biapical pleuroparenchymal disease. Hyperinflation and heterogeneous lungs suggestive of emphysema. Stable 3 mm lingular nodule. Pleural spaces: See Lungs finding. Heart: Unremarkable. No cardiomegaly. No pericardial effusion. Mediastinal space: There is a large right hilar stable mass extending into the mediastinum. Lymph nodes: Unremarkable. No enlarged lymph nodes. Intraperitoneal space: The abdomen and pelvis will be discussed below. Bones/joints: Unremarkable. No acute fracture. Soft tissues: Unremarkable. COMMENTS: In the absence of a history or active diagnosis of lung cancer, it is recommended that this patient with emphysema be evaluated for enrollment in a low dose CT lung cancer screening program. PROCEDURE INFORMATION: Exam: CT Abdomen And Pelvis With Contrast Exam date and time: 06/01/2022 11:17 AM Age: 71 years old Clinical indication: Abdominal tenderness; Shortness of breath; Additional info: Difficulty breathing TECHNIQUE: Imaging protocol: Computed tomography of the abdomen and pelvis with contrast. Radiation optimization: All CT scans at this facility use at least one of these dose optimization techniques: automated exposure control; mA and/or kV adjustment per patient size (includes targeted exams where dose is matched to clinical indication); or iterative reconstruction. Contrast material: OMNI 350; Contrast volume: 100 ml; Contrast route: INTRAVENOUS (IV); COMPARISON: CT chest abd pel w con* 05/14/2022 11:12 AM RADIATION DOSE METRICS: Total DLP (mGy-cm): 677.38 FINDINGS: Lungs: Lung bases will be discussed above. Liver: The liver is very enlarged at 250 mm. Stable diffuse metastatic disease noted throughout the liver. Most of the liver parenchyma is replaced with metastatic disease. Gallbladder and bile ducts: Cholecystectomy. Pancreas: Normal. No ductal dilation. Spleen: Normal. No splenomegaly. Adrenal glands: Normal. No mass. Kidneys and ureters: Normal. No hydronephrosis. Stomach and bowel: Diverticulosis of the colon specifically the sigmoid colon. Appendix: No evidence of appendicitis. Intraperitoneal space: Unremarkable. No free air. No significant fluid collection. Vasculature: Vascular calcifications. Lymph nodes: Unremarkable. No enlarged lymph nodes. Urinary bladder: Unremarkable as visualized. Reproductive: Unremarkable as visualized. Bones/joints: Unremarkable. No acute fracture. Soft tissues: Soft tissue edema new since the previous examination [id number]. CT/CT angio chest w abd pel w con IMPRESSION: 1. Stable right hilar/mediastinal mass with other stable mediastinal and other lung masses. 2. Compression of the superior vena cava as well as the right main upper lobe pulmonary artery. There is no evidence of a clot however, branches of the right upper lobe pulmonary artery appear occluded likely compressed from the mass. 3. Occluded right upper lobe bronchus. IMPRESSION: 1. Stable hepatic metastatic disease. 2. New soft tissue edema. 3. Hepatomegaly.
[2022-06-01 10:41] LABS: ABG PH Result 7.33 (7.35-7.45); Arterial Blood Gas Hematocrit 55.9 % (37-47); Base Excess ABG -9.3 mmol/L (-2.0-2.0); Blood Gas Allen Test Pos; Blood Gas Operator Identificat CAK; Blood Gas Sample Site Brachial, left; Blood Gas Sample Type Arterial; HCO3 ABG 14.7 mmol/L (22-26); Oxygen Device NC
[2022-06-01] MEDS: sodium chloride 0.9% 1,000 ML 999 ML IV (10:50)
[2022-06-01] MEDS: sodium chloride 0.9% 500 ML IV (10:53)
[2022-06-01 10:58] LABS: INR 1.35 (0.8-1.2); Partial Thromboplastin Time 22.1 SECONDS (23.9-36.7)
[2022-06-01 11:03] LABS: Bilirubin Urine Neg (Negative); Blood Urine Neg (Negative); Glucose Urine UA Norm (Normal); Ketones Urine 1+ (Negative); Leukocyte Esterase Urine Negative (Negative); Nitrate Urine Negative (Negative); Protein Urine Neg (Negative); Urine Appearance Clear (CLEAR); Urine Color Dark Yellow (Yellow); Urobilinogen Urine Norm (Negative); pH Urine 5 (5-7)
[2022-06-01 11:08] LABS: Troponin T (5th) Once 62 ng/L (0-10)
[2022-06-01 11:13] LABS: Albumin Level 3.2 g/dL (3.5-5.2); Alkaline Phosphatase 560 U/L (35-105); Anion Gap 32.9 (5-19); Blood Urea Nitrogen 67 mg/dL (8-23); C Reactive Protein 113.8 mg/L (0.0-4.9); Calcium 8.7 mg/dL (8.5-10.5); Carbon Dioxide 15 mmol/L (22-29); Chloride 80 mmol/L (98-107); Globulin 2.6 g/dL (1.3-4.6); Glucose 74 mg/dL (65-115); Magnesium 2.9 mg/dL (1.7-2.3); NT Pro B Type Natriuretic Pept 860 pg/mL (0-125); Osmolality Calculated 270 mOsm/kg (285-295); Sodium 121 mmol/L (136-145); Total Bilirubin 1.7 mg/dL (0.15-1.2); Total Protein 5.8 g/dL (6.6-8.7)
[2022-06-01 11:24] LABS: Alanine Aminotransferase 849 U/L (0-33)
[2022-06-01] MEDS: iohexol 350 mg/mL 500 mL Btl (per mL) IV (11:26)
[2022-06-01 11:32] LABS: Aspartate Amino Transferase 1493 U/L (0-32)
[2022-06-01 11:34] LABS: Potassium 6.9 mmol/L (3.5-5.1)
[2022-06-01 11:35] LABS: Lactic Sepsis W/Reflex 7.2 mmol/L (0.5-2.2)
--- NOTE | 2022-06-01 11:39 | ED_ITS ---
HPI - Weakness General: Chief complaint: Weakness Stated complaint: WEAKNESS Time Seen by Provider: 06/01/22 09:57 History of Present Illness: 71-year-old female with recently diagnosed lung cancer comes in because of generalized weakness. The patient has not been eating or drinking at home. Family states she has had some vomiting as well. She had a recent biopsy performed and is pending decision for treatment versus hospice. Patient complains of severe pain in her right upper quadrant and right chest area. She complains of feeling short of breath as well. She has develope d purple discoloration of her upper extremities in the past couple of days. She has had this purplish discoloration of her lower extremities for at least 2 months. Patient has been too weak to get out of bed today. Associated symptoms: Reports chest pain, nausea and vomiting; Denies chills or fever(s) Review of Systems Const: Reports: body aches, fatigue and malaise; Denies: fever(s) or chills Eyes: Denies: change in vision ENMT: Denies: throat pain Card: Reports: chest pain Resp: Reports: dyspnea; Denies: productive cough GI: Reports: abdominal pain, nausea and vomiting : Reports: oliguria Musc: Reports: back pain Skin/Breast: Reports: changes in skin color PFSH ED PFSH: Medical History Anxiety Depression Surgical History History of appendectomy History of cataract extraction bilateral History of cholecystectomy Status post small bowel resection Partial small bowel resection for small bowel obstruction Family History Other Diabetes Stroke Social History Smoking and tobacco status: current every day smoker Second hand smoke exposure: No Smoking risk assessment/counseling performed?: No Alcohol intake: never Lives independently: Yes Household members: spouse Marital status: Current occupational status: retired History of recent travel: No Current gender identity: Female Special romana needs: No Physical Exam Const: OTHER: Patient is very ill-appearing, she appears short of breath, cyanotic appearance to her upper extremities, neck and face with generalized plethora HENMT: OTHER: Mucous membranes are dry. Patient has a cyanotic appearance Eye: OTHER: No scleral icterus Neck/C-Spine: OTHER: Positive JVD Resp: OTHER: Patient appears short of breath. Decreased breath sounds in the right. Cardio: OTHER: Patient is tachycardic, positive JVD GI: OTHER: Abdomen tender in the right upper quadrant. Extremity: OTHER: Upper extremities are cyanotic. 4+ edema of her lower extremities with cyanosis. Neuro: OTHER: Patient is alert and oriented x3. Course ED course: The patient has had an IV placed and labs obtained including blood cultures and lactic acid. She has been given a total of 2 L of saline IV. She has been given Zofran for nausea and morphine for pain. On her laboratory evaluation, she does have a lactic acidosis with a lactate of 7.2. Her white blood cell count is minimally elevated at 12.5. Her sodium is low at 121, potassium 6.9, chloride is 80, CO2 is 15. BUN 67, creatinine 2.1. Urinalysis is negative for UTI. CTA of her chest does show significant lung mass involvement of the right hemithorax with compression of the superior vena cava but no pulmonary embolism. She also has liver metastasis. Consultations: Consultation #1: Discussed with the hospitalist for possible admission. They recommend that the patient be placed on hospice. Will discuss with hospice nurse. Have discussed this with the patient and the family and they are comfortable with the patient going home on hospice. Patient will be sent home by ambulance. Patient was given IV fluids as well as morphine for pain. She was given a dose of Kayex alate in the ER. Hospice nurse will meet them at home to set up hospice care. Vital Signs: Vital signs: Vital Signs Temperature 98.6 F 06/01/22 09:31 Pulse Rate 84 06/01/22 13:36 Respiratory Rate 22 H 06/01/22 13:36 Blood Pressure 138/77 06/01/22 13:36 Pulse Oximetry 93 06/01/22 13:36 Oxygen Delivery Me thod 06/01/22 13:36 Oxygen Flow Rate 4 06/01/22 13:36 MDM - Weakness Medical Decision Making 71-year-old female who presents with recently diagnosed lung cancer. Patient has known hepatic metastasis. She presents today with generalized weakness due to not eating or drinking well is from vomiting. Patient has increasing pain of her right upper extremity and right chest area and now has developed cyanosis of her upper extremities with JVD. 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 Medical Records I reviewed the patient's medical records. Recent charts reviewed for biopsy, recent diagnosis of metastatic lung cancer. Lab Data 06/01/22 10:11 06/01/22 10:11 Radiology Impressions Chest X-Ray 06/01/22 10:07 IMPRESSION: No change in the right mid lung mass extending to the hilum. Chest/Abdomen/Pelvis CT 06/01/22 10:36 IMPRESSION: 1. Stable right hilar/mediastinal mass with other stable mediastinal and other lung masses. 2. Compression of the superior vena cava as well as the right main upper lobe pulmonary artery. There is no evidence of a clot however, branches of the right upper lobe pulmonary artery appear occluded likely compressed from the mass. 3. Occluded right upper lobe bronchus. IMPRESSION: 1. Stable hepatic metastatic disease. 2. New soft tissue edema. 3. Hepatomegaly. Laboratory Results WBC 12.5 10^3/uL (4.0-10.0) H 06/01/22 11:38 Corrected WBC Cancelled 06/01/22 10:11 RBC 4.72 10^6/uL (4.1-5.3) 06/01/22 11:38 Hgb 14.7 g/dL (11.5-15.3) 06/01/22 11:38 Hct 44.9 % (37.0-47.0) 06/01/22 11:38 MCV 95.1 fl (81-99) 06/01/22 11:38 MCH 31.1 pg (28.0-34.0) 06/01/22 11:38 MCHC 32.7 g/dL (30.0-36.0) 06/01/22 11:38 RDW 18.0 % (12.1-15.1) H 06/01/22 11:38 Plt Count 167 10^3/cmm (130-400) 06/01/22 11:38 MPV 9.8 fL (7.4-10.4) 06/01/22 11:38 Gran % Cancelled 06/01/22 10:11 Neut % (Auto) 88.4 % 06/01/22 11:38 Lymph % (Auto) 4.0 % 06/01/22 11:38 Trinity % (Auto) 6.3 % 06/01/22 11:38 Eos % (Auto) 0.1 % 06/01/22 11:38 Baso % (Auto) 0.3 % 06/01/22 11:38 Neut # (Auto) 11.04 10^3/uL (1.8-7.7) H 06/01/22 11:38 Lymph # (Auto) 0.5 10^3/uL (0.8-4.8) L 06/01/22 11:38 Trinity # (Auto) 0.8 10^3/uL (0.2-0.9) 06/01/22 11:38 Eos # (Auto) 0.0 10^3/uL (0.0-0.8) 06/01/22 11:38 Baso # (Auto) 0.0 10^3/uL (0.0-0.1) 06/01/22 11:38 Absolute Gran (auto) Cancelled 06/01/22 10:11 Nucleated RBC % (auto) 0.2 % 06/01/22 11:38 Nucleated RBCs # 0.0 /100WBC 06/01/22 11:38 PT 17.00 SECONDS (12.1-14.9) H 06/01/22 10:11 INR 1.35 (0.8-1.2) H 06/01/22 10:11 APTT 22.1 SECONDS (23.9-36.7) L 06/01/22 10:11 Specimen Type Arterial 06/01/22 10:30 Sample Site Brachial, left 06/01/22 10:30 ABG pH 7.33 (7.35-7.45) L 06/01/22 10:30 ABG pCO2 28.0 mmHg (35-45) L 06/01/22 10:30 ABG pO2 110.0 mmHg (80.0-100.0) H 06/01/22 10:30 ABG HCO3 14.7 mmol/L (22-26) L 06/01/22 10:30 ABG Base Excess -9.3 mmol/L (-2.0-2.0) L 06/01/22 10:30 Fermin Test Pos 06/01/22 10:30 Hematocrit 55.9 % (37-47) H 06/01/22 10:30 O2 Delivery Device Nc 06/01/22 10:30 O2 Liters/Min 3.0 % 06/01/22 10:30 Waist Cutter ID Cak 06/01/22 10:30 Sodium 121 mmol/L (136-145) L 06/01/22 10:11 Potassium 6.9 mmol/L (3.5-5.1) H* 06/01/22 10:11 Chloride 80 mmol/L (98-107) L 06/01/22 10:11 Carbon Dioxide 15 mmol/L (22-29) L 06/01/22 10:11 Anion Gap 32.9 (5-19) H 06/01/22 10:11 BUN 67 mg/dL (8-23) H 06/01/22 10:11 Creatinine 2.1 mg/dL (0.5-0.9) H 06/01/22 10:11 GFR Calculation Not Reportable 06/01/22 10:11 Glucose 74 mg/dL (65-115) 06/01/22 10:11 POC Glucose 30 mg/dL (70-110) L* 06/01/22 11:49 Calculated Osmolality 270 mOsm/kg (285-295) L 06/01/22 10:11 Lactic Acid 7.2 mmol/L (0.5-2.2) H* 06/01/22 10:50 Calcium 8.7 mg/dL (8.5-10.5) 06/01/22 10:11 Magnesium 2.9 mg/dL (1.7-2.3) H 06/01/22 10:11 Total Bilirubin 1.7 mg/dL (0.15-1.2) H 06/01/22 10:11 AST 1493 U/L (0-32) H 06/01/22 10:11 ALT 849 U/L (0-33) H 06/01/22 10:11 Alkaline Phosphatase 560 U/L (35-105) H 06/01/22 10:11 Troponin T Gen 5 ng/L 62 ng/L (0-10) H 06/01/22 10:11 C-Reactive Protein 113.8 mg/L (0.0-4.9) H 06/01/22 10:11 NT-Pro-B Natriuret Pep 860 pg/mL (0-125) H 06/01/22 10:11 Total Protein 5.8 g/dL (6.6-8.7) L 06/01/22 10:11 Albumin 3.2 g/dL (3.5-5.2) L 06/01/22 10:11 Globulin 2.6 g/dL (1.3-4.6) 06/01/22 10:11 Urine Color Dark yellow (Yellow) 06/01/22 10:29 Urine Appearance Clear (CLEAR) 06/01/22 10:29 Urine pH 5 (5-7) 06/01/22 10:29 Ur Specific Calvin 1.020 (1.005-1.030) 06/01/22 10:29 Urine Protein Neg (Negative) 06/01/22 10:29 Urine Glucose (UA) Norm (Normal) 06/01/22 10:29 Urine Ketones 1+ (Negative) H 06/01/22 10:29 Urine Blood Neg (Negative) 06/01/22 10:29 Urine Nitrate Negative (Negative) 06/01/22 10:29 Urine Bilirubin Neg (Negative) 06/01/22 10:29 Urine Urobilinogen Norm mg/dL (Negative) 06/01/22 10:29 Ur Leukocyte Esterase Negative (Negative) 06/01/22 10:29 Blood Type O Positive 06/01/22 10:50 Rho(D) Type Positive 06/01/22 10:50 Antibody Screen Negative 06/01/22 10:50 Discharge Plan Discharge Patient Disposition: Home Clinical Impression: Lung cancer, Dehydration, Cancer, metastatic to liver, Superior vena cava compression syndrome, Hyperkalemia, Terminal care, Hospice care Condition: Fair Prescriptions: No Action lorazepam 1 mg tablet 1 mg PO DAILY Qty: 30 3RF albuterol sulfate [ProAir HFA] 90 mcg/actuation HFA aerosol inhaler 2 puff inhalation Q6H PRN (Reason: shortness of breath or wheezing) Qty: 8.5 1RF ondansetron HCl 4 mg tablet 4 mg PO Q6H PRN (Reason: nausea and vomiting) Qty: 90 0RF nystatin 100,000 unit/mL suspension 5 ml PO QID 7 Days Qty: 140 0RF Rx Instructions: swish and swallow furosemide 40 mg tablet 40 mg PO DAILY Qty: 30 0RF potassium chloride 10 mEq tablet extended release 10 meq PO DAILY Qty: 30 0RF oxycodone 10 mg tablet 10 mg PO Q6H PRN (Reason: pain) 30 Days Qty: 120 0RF diclofenac sodium [Voltaren Arthritis Pain] 1 % gel 4 g topical QID Qty: 100 0RF cholecalciferol (vitamin D3) 50 mcg (2,000 unit) capsule 50 mcg PO DAILY 90 Days Qty: 90 1RF nortriptyline 25 mg capsule 75 mg PO QPM Spiriva with HandiHaler 18 mcg capsule, w/inhalation device 1 cap inhalation DAILY Qty: 30 3RF Rx Instructions: puncture 1 cap using device; one dose = 2 inhalations levofloxacin 500 mg tablet 500 mg PO DAILY 5 Days Qty: 5 0RF Discharge Orders: Discharge ED (Routine); Ordered 06/01/22 Ordered By: Jennie Waters Referrals: Jacqueline Martinez CUSTOMER ENGAGEMENT SPECIALIST [Primary Care Provider] - Discharge Diet: Advance as tolerated Discharge Activity: Increase activity as tolerated Patient Instructions: Opioid Safety, Pain Management Activity Restrictions/Additional Instructions: Hospice Nurse will contact you and set things up today Coding Level of Care Code ED Computer Numerical Control Machinist for Chuck Vazquez
[2022-06-01 11:45] LABS: Basophils % 0.3 %; Eosinophils % 0.1 %; Hematocrit 44.9 % (37.0-47.0); Hemoglobin 14.7 g/dL (11.5-15.3); Lymphocytes # 0.5 10^3/uL (0.8-4.8); Mean Corpuscular HGB Conc 32.7 g/dL (30.0-36.0); Mean Corpuscular Hemoglobin 31.1 pg (28.0-34.0); Mean Corpuscular Volume 95.1 fl (81-99); Mean Platelet Volume 9.8 fL (7.4-10.4); Monocytes # 0.8 10^3/uL (0.2-0.9); Monocytes % 6.3 %; Neutrophils # 11.04 10^3/uL (1.8-7.7); Neutrophils % 88.4 %; Nucleated Red Blood Cells % 0.2 %; Platelet Count 167 10^3/cmm (130-400); Red Blood Count 4.72 10^6/uL (4.1-5.3); White Blood Count 12.5 10^3/uL (4.0-10.0)
--- NOTE | 2022-06-01 11:50 | PC.NURSE ---
notified dr. oconnor of potassium of 6.9 and lactic acid of 7.2 she verbalized understanding no further orders.
[2022-06-01 11:52] LABS: Reflex Lactate Order REFLEX LACTIC ORDERD
[2022-06-01 11:56] LABS: Glucose Point of Care 30 mg/dL (70-110)
--- NOTE | 2022-06-01 11:58 | PC.NURSE ---
FSBS 32 ON FIRST STICK. NURSE ASKED TECH TO RETAKE FSBS. OPPOSITE HAND READ 11. PROVIDER NOTIFIED OF FSBS AND LAB GLUCOSE.
[2022-06-01] MEDS: ondansetron 2 mg/ML SDV 2 mL 4 MG IVP (13:03)
[2022-06-01] MEDS: morphine 4 mg/mL SDV 1 mL IVP (14:24)
[2022-06-01] MEDS: sodium polystyrene sulfonate 15 gm/60 mL Btl PO (14:24)
[2022-06-01 15:03] LABS: Lactic Acid level (Lactate) 5.1 mmol/L (0.5-2.2)
== END 2022-06-01 16:21 | disposition home or self-care (01) ==
PROVIDERS: Physician Assistant; Emergency Provider Emergency Medicine; PCP Nurse Practitioner Family
DX: C34.90 Malignant neoplasm of unspecified part of unspecified bronchus or lung (principal); C78.7 Secondary malignant neoplasm of liver and intrahepatic bile duct; E86.0 Dehydration; E87.5 Hyperkalemia; F17.210 Nicotine dependence, cigarettes, uncomplicated; I87.1 Compression of vein
CPT/HCPCS: 36415; 36416; 36600; 71045; 71275; 74177; 80053; 81003; 82803; 82962; 83605; 83735; 83880; 84484; 85025; 85610; 85730; 86140; 86850; 86900; 87040; 93005; 96361; 96374; 96375; 99285; J2270; J2405; J7030; J7040; Q9967